=== PATIENT | female | born 2000 ===

== ENCOUNTER 2022-02-07 21:50 | Inpatient (IN) | payer OTHER ==
[~2022-02-07] VITALS: Ht 162.6 cm; Wt 67.3 kg
[2022-02-07 22:22] LABS: BASOPHILS ABSOLUTE AUTO 0.03 K/mm3 (0.00-0.23); BASOPHILS PERCENT AUTO 0 % (0-2); EOSINOPHILS ABSOLUTE AUTO 0.02 K/mm3 (0.00-0.68); EOSINOPHILS PERCENT AUTO 0 % (0-6); Hematocrit 43.3 % (33.0-51.0); Hemoglobin 14.8 g/dL (11.5-16.0); IMMATURE GRAN ABSOLUTE AUTO 0.02 K/mm3 (0.00-0.10); IMMATURE GRAN PERCENT AUTO 0 % (0-1); LYMPHOCYTES ABSOLUTE AUTO 2.05 K/mm3 (0.84-5.20); LYMPHOCYTES PERCENT AUTO 27 % (21-46); MONOCYTES ABSOLUTE AUTO 0.36 K/mm3 (0.16-1.47); MONOCYTES PERCENT AUTO 5 % (4-13); Mean Corpuscular HGB 29.8 pg (26.0-34.0); Mean Corpuscular HGB Conc 34.2 g/dL (31.5-36.5); Mean Corpuscular Volume 87 fL (80-100); Mean Platelet Volume 8.9 fL (9.1-12.4); NEUTROPHILS ABSOLUTE AUTO 5.08 K/mm3 (1.96-9.15); NEUTROPHILS PERCENT AUTO 67 % (41-73); Platelet Count 306 K/mm3 (150-400); RDW Coefficient Variation 12.4 % (11.7-14.2); RDW Standard Deviation 39.4 fL (35.1-46.3); Red Blood Cell Count 4.96 M/mm3 (3.80-5.20); White Blood Cell Count 7.56 K/mm3 (4.00-11.30)
[2022-02-07 22:36] LABS: Source, Urine Foley catheter
[2022-02-07 22:42] LABS: Bilirubin, Urine Neg (Neg); Blood, Urine 1+ (Neg); Glucose Qualitative, Urine Neg (Neg); Ketones, Urine Neg (Neg); Leukocyte Esterase, Urine Neg (Neg); Nitrite, Urine Neg (Neg); Protein, Urine Neg (Neg); Specific Gravity, Urine 1.015 (1.003-1.022); Urobilinogen, Urine NORM (Normal)
[2022-02-07 22:43] LABS: PCO2 Arterial 36.3 mmHg (35-45); PO2 Arterial 158 mmHg (80-100); pH Blood Arterial 7.43 (7.35-7.45)
[2022-02-07 22:47] LABS: Ethanol (Alcohol), Blood, Med 139 mg/dL; Free Thyroxine 1.03 ng/dL (0.70-1.60); Salicylate <1.7 mg/dL (2.8-20.0); Thyroid Stimulating Hormone 0.945 uIU/mL (0.360-4.800)
[2022-02-07 22:48] LABS: Appearance, Urine Clear (Clear); Color, Urine Yellow (P-Yellow)
[2022-02-07 22:49] LABS: Bacteria Not Seen /hpf; Red Blood Cells, Urine 0-2 /hpf (0-2); Squamous Epithelial Cells Rare /hpf (Few); White Blood Cells, Urine Not Seen /hpf (0-5)
[2022-02-07 22:56] LABS: Alanine Aminotransfer (ALT/SGP 27 U/L (12-78); Albumin/Globulin Ratio 1.1 (0.8-1.8); Alk Phos 60 U/L (50-136); Anion Gap 12 mmol/L (6-16); Aspartate Aminotrans (AST/SGOT 21 U/L (12-37); Bilirubin, Total 0.2 mg/dL (0.1-1.0); Blood Urea Nitrogen 7 mg/dL (8-24); Bun/Creatinine Ratio 7.3 (12.0-20.0); CO2, Blood 21 mmol/L (21-32); Calcium, Blood 8.8 mg/dL (8.5-10.1); Chloride, Blood 111 mmol/L (98-108); Creatinine, Blood 0.96 mg/dL (0.40-1.00); Globulin, Blood 3.6 g/dL (2.2-4.0); Glomerular Filtration Rate 86 (60-); Glucose, Blood 120 mg/dL (70-99); Sodium, Blood 144 mmol/L (136-145); Total Protein, Blood 7.6 g/dL (6.4-8.2)
[2022-02-07 22:58] LABS: Acetaminophen, Random <2.0 ug/mL (10.0-30.0)
[2022-02-07 23:23] LABS: U Amphetamine Screen Not Detected; U Barbituate Screen Not Detected; U Benzodiazapine Screen Not Detected; U Buprenorphine Screen Not Detected; U Cannabinoids Screen Not Detected; U Cocaine Screen DETECTED; U Methadone Screen Not Detected; U Methamphetamine Screen Not Detected; U Opiates Screen Not Detected; U Oxycodone Screen Not Detected; U Phencyclidine Screen Not Detected; U Propoxyphene Screen Not Detected
[2022-02-07 23:44] LABS: Influenza A, PCR NEGATIVE (NEGATIVE); Influenza B, PCR NEGATIVE (NEGATIVE); Resp Syncytial Virus, PCR NEGATIVE (NEGATIVE); SARS-Cov-2 (COVID-19) PCR, MMC NEGATIVE (NEGATIVE)
--- NOTE | 2022-02-08 00:30 | NUR ---
ASSUMED CARE. PATIENT ARRIVED TO ROOM VIA FIORDALIZA RT AT BEDSIDE HOOKED UP TO VENT AND PLACED VENT SETTINGS AT 16/400/2/30%. PATIENT SEDATED ON 5MCQ OF PROPOFOL. MAG GTT COMPLETED. POTASSIUM GTT INFUSING. IVF BOLUS GOING. ETT TUBE PLACEMENT AT 7.5/23. SLIGHT RESONSE TOP PRESSURE ON EYES. PUPILS VERY SLUGGISH PINPOINT. NO GAG, SWALLOW, OR COUGH NOTED. OG HOOKED TO LIS AT WHICH BRIGHT PINK WAS OBTAINED WHICH APPEARS TO BE BENADRYL THAT SHE INGESTED. BT ARE HYPOACTIVE. NO SKIN CONDITIONS. CATH IS PATENT AND DRAINING. AFEBRILE. HYPOTENSIVE IN THE 80'S WILL CALL DR. BENITES. WILL CONTINUE TO MONITOR.
[2022-02-08] MEDS ORDERED: GABA300 PO (02:59)
[2022-02-08] MEDS ORDERED: Prozac40 MG PO (03:00)
[2022-02-08] MEDS ORDERED: QUET25 PO (03:01)
--- NOTE | 2022-02-08 03:44 | NUR ---
SPOKE TO DR. BENITES IN REGARDS TO LOW BP MAP 65 AT THIS TIME. ORDER TO BOLUS AND IF STILL LOW START LEVOPHED.
--- NOTE | 2022-02-08 06:08 | NUR ---
SHIFT SUMMARY: PATIENT HAS REMAINED SEDATED ON PROPOFOL WITH RATE INCREASED TO 10MCQ THIS AM, SHE IS ABLE TO OPEN EYES BUT DOES NOT FOLLOW DIRECTIONS. PUPILS ARE STILL SLUGGISH, NO GAG, COUGH OR SWALLOW NOTED. SHE HAS RECEIVED 2G MAG, POTASSIUM CHLORIDE, AND 750MG OF KEPPRA. SHE DID HAVE 1 SEIZURE THAT LASTED SECONDS. LS CLEAR, VENT SETTINGS 16/400/2/30%. SATS REMAINED 100%. SINUS ON MONITOR WITH RATE IN THE 80-90'S. BP HAS IMPROVED NOW IN THE 112/81. QTC HAVE REMAINED BELOW 550. ABD SOFT, SLIGHT DISTENTION, OG TO LIS WITH PINK DRAINAGE OF 275CC WHICH APPEARS TO BE THE BENADRYL SHE HAD INGESTED. THIS AM EKG SHOWED PROLONG QT AND T WAVE ABNORMALITY. VERGARA WITH CLEAR YELLOW, GOOD OUTPUT. TOTAL OF 2 LITER BOLUS WAS GIVEN. RESTRAINTS ARE IN PLACE. CONSULT TO [facility] COMPLETED. WILL REPORT OFF TO DAYSHIFT.
[2022-02-08 06:10] LABS: Bun/Creatinine Ratio 6.9 (12.0-20.0); Calcium, Blood 7.8 mg/dL (8.5-10.1); Creatinine, Blood 1.01 mg/dL (0.40-1.00); Potassium, Blood 4.2 mmol/L (3.5-5.5)
[2022-02-08 06:12] LABS: BASOPHILS ABSOLUTE AUTO 0.08 K/mm3 (0.00-0.23); BASOPHILS PERCENT AUTO 1 % (0-2); EOSINOPHILS ABSOLUTE AUTO 0.06 K/mm3 (0.00-0.68); EOSINOPHILS PERCENT AUTO 0 % (0-6); Hemoglobin 14.3 g/dL (11.5-16.0); IMMATURE GRAN ABSOLUTE AUTO 0.24 K/mm3 (0.00-0.10); IMMATURE GRAN PERCENT AUTO 2 % (0-1); LYMPHOCYTES ABSOLUTE AUTO 2.35 K/mm3 (0.84-5.20); LYMPHOCYTES PERCENT AUTO 16 % (21-46); MONOCYTES ABSOLUTE AUTO 1.14 K/mm3 (0.16-1.47); MONOCYTES PERCENT AUTO 8 % (4-13); Mean Corpuscular HGB 29.2 pg (26.0-34.0); Mean Corpuscular HGB Conc 33.3 g/dL (31.5-36.5); Mean Corpuscular Volume 88 fL (80-100); Mean Platelet Volume 8.9 fL (9.1-12.4); NEUTROPHILS ABSOLUTE AUTO 10.69 K/mm3 (1.96-9.15); NEUTROPHILS PERCENT AUTO 74 % (41-73); Platelet Count 252 K/mm3 (150-400); RDW Coefficient Variation 12.7 % (11.7-14.2); RDW Standard Deviation 40.5 fL (35.1-46.3); Red Blood Cell Count 4.89 M/mm3 (3.80-5.20); White Blood Cell Count 14.56 K/mm3 (4.00-11.30)
--- NOTE | 2022-02-08 07:30 | NUR ---
PT REMAINS UNRESPONSIVE. PUPILS 4 MM AND SLUGGISH. MINIMAL COUGH AND GAG REFLEX WITH ORAL CARE AND ETT SUCTIONING. SEIZURE PADS IN PLACE-NO NOTED SEIZURE ACTIVITY THIS AM. PROPOFOL @ 10 MCG/KG/MIN. ECG SHOWS SR WITH RATE 90'S-MONITORING QT/QTC. SBP TRENDING 110'S. DP/PT PULSES STRONG. NO NOTED EDEMA. LUNGS CLEAR. 7.5 ETT/ 23 @ TEETH. VENT:AC/VC 16, TV 400, PEEP 2, FIO2 30%. SATS>90%. OGT WITH LARGE AMOUNT OF PINK, LIQUID DRAINAGE. VERGARA TO BSD WITH ADEQUATE URINE OUTPUT. PT HAS MULTIPLE TATTOOS AND PIERCINGS, BUT SKIN IS OVERALL CDI. WILL CONTACT HOSPITALIST TO DISCUSS WHETHER OR NOT ELECTRIC VEHICLE ELECTRICIAN CONSULT NEEDED. ONCE PT IS EXTUBATED, SHE WILL REQUIRE 1:1 SITTER SHE IS HIGH RISK FOR SUICIDE.
--- NOTE | 2022-02-08 08:05 | NUR ---
DR. DUCKWORTH HERE TO SEE PT. FULL UPDATE GIVEN. GLOBAL MOBILITY SPECIALIST HAS BEEN CONSULTED.
[2022-02-08 08:36] LABS: Source, Urine Foley catheter
[2022-02-08 08:39] LABS: Appearance, Urine Clear (Clear); Bilirubin, Urine Neg (Neg); Blood, Urine Neg (Neg); Color, Urine Yellow (P-Yellow); Glucose Qualitative, Urine Neg (Neg); Ketones, Urine Neg (Neg); Leukocyte Esterase, Urine Neg (Neg); Nitrite, Urine Neg (Neg); Protein, Urine 2+ (Neg); Specific Gravity, Urine 1.015 (1.003-1.022); Urobilinogen, Urine NORM (Normal)
[2022-02-08 08:59] LABS: Bacteria Rare /hpf; Red Blood Cells, Urine 0-2 /hpf (0-2); Squamous Epithelial Cells Not Seen /hpf (Few)
--- NOTE | 2022-02-08 09:45 | NUR ---
DR. SCOTT IN TO SEE PT. UPDATE GIVEN. PT DID OPEN HER EYES TO VOICE, BUT UNABLE TO TRACK OR FOLLOW COMMANDS. NYSTAGMUS NOTED.
--- NOTE | 2022-02-08 10:01 | NUR ---
MYOCLONIC MOVEMENT NOTED. EYES OPEN AND CONTINUOUS NYSTAGMUS NOTED. DR. SCOTT AWARE. PROPOFOL TITRATED UP TO 20 MCG/KG/MIN.
--- NOTE | 2022-02-08 12:00 | NUR ---
NO FURTHER MYOCLONIC MOVEMENT NOTED WITH PROPOFOL @ 20 MCG/KG/MIN. TEMP 99.3-BLANKETS REMOVED. HR CONTINUES 90'S SR. SBP TRENDING 110-120'S. LUNGS REMAIN CLEAR. MAINTAINS SATS>90% ON FIO2 30% OGT CONTINUES TO DRAIN PINK LIQUID DRAINAGE TO LIS. VERGARA OUTPUT ADEQUATE.
--- NOTE | 2022-02-08 15:59 | NUR ---
MYCLONIC MOVEMENT NOTED. CONTINUOUS NYSTAGMUS WITH PROPOFOL @ 20 MCG/IKG/MIN. MED WITH ATIVAN 2 MG IVP X 1 AND TITRATED PROPOFOL UP TO 30 MCG/KG/MIN. TEMP 100.1. HR STILL 90'S SR. BP TRENDING 120-130'S/90'S.
--- NOTE | 2022-02-08 17:57 | NUR ---
NO NOTED SEIZURE ACTIVITY OR MYCLONIC MOVEMENT @ PRESENT. HR 68-SR. PROPOFOL TITRATED DOWN TO 30 MCG/KG/MIN. TEMP 99.7. SATS >90% ON RA. OGT CONTINUES TO DRAIN PINK, LIQUID DRAINAGE. VERGARA OUTPUT 1000 CC THIS SHIFT.
--- NOTE | 2022-02-08 19:00 | NUR ---
ASSUMED CARE ASSUMED CARE OF PATIENT. REMAINS INTUBATED- AC/VC+ 16/400/5/30%. RR 16. SEDATED WITH PROPOFOL AT 35MCG/KG/MIN. WITHDRAWS EXTREMITIES TO NOXIOUS STIMULI. NO GAG OR COUGH. NO NYSTAGMUS NOTED AT THIS TIME. NO SEIZURE ACTIVITY. MONITOR SHOWS NSR, RATE 60s. MONITORING QT/QTc. BP STABLE. OG TO LIS WITH PINK DRAINAGE- FLUSHED FOR PATENCY. VERGARA PATENT AND DRAINING TO GRAVITY. 1/2NS INFUSING AT 100CC/HR PER ORDER. SEE SHIFT ASSESSMENT FOR FULL ASSESSMENT.
--- NOTE | 2022-02-09 02:22 | NUR ---
SEIZURE ACTIVITY PT NOTED TO HAVE MYOCLONIC JERKING WITH EYELID TWITCHING AND NYSTAGMUS. MEDICATED WITH ATIVAN 2MG IV.
[2022-02-09 03:41] LABS: BASOPHILS ABSOLUTE AUTO 0.05 K/mm3 (0.00-0.23); BASOPHILS PERCENT AUTO 0 % (0-2); EOSINOPHILS PERCENT AUTO 1 % (0-6); Hematocrit 39.8 % (33.0-51.0); Hemoglobin 13.1 g/dL (11.5-16.0); IMMATURE GRAN ABSOLUTE AUTO 0.04 K/mm3 (0.00-0.10); IMMATURE GRAN PERCENT AUTO 0 % (0-1); LYMPHOCYTES PERCENT AUTO 18 % (21-46); MONOCYTES ABSOLUTE AUTO 1.02 K/mm3 (0.16-1.47); MONOCYTES PERCENT AUTO 8 % (4-13); Mean Corpuscular HGB 29.4 pg (26.0-34.0); Mean Corpuscular HGB Conc 32.9 g/dL (31.5-36.5); Mean Corpuscular Volume 89 fL (80-100); Mean Platelet Volume 8.9 fL (9.1-12.4); NEUTROPHILS ABSOLUTE AUTO 9.38 K/mm3 (1.96-9.15); NEUTROPHILS PERCENT AUTO 73 % (41-73); Platelet Count 257 K/mm3 (150-400); RDW Coefficient Variation 13.1 % (11.7-14.2); RDW Standard Deviation 42.7 fL (35.1-46.3); Red Blood Cell Count 4.45 M/mm3 (3.80-5.20); White Blood Cell Count 12.89 K/mm3 (4.00-11.30)
[2022-02-09 04:01] LABS: Albumin, Blood 3.5 g/dL (3.4-5.0); Anion Gap 7 mmol/L (6-16); Blood Urea Nitrogen 7 mg/dL (8-24); Bun/Creatinine Ratio 6.7 (12.0-20.0); CO2, Blood 24 mmol/L (21-32); Calcium, Blood 8.7 mg/dL (8.5-10.1); Chloride, Blood 110 mmol/L (98-108); Creatinine, Blood 1.04 mg/dL (0.40-1.00); Glomerular Filtration Rate 78 (60-); Glucose, Blood 67 mg/dL (70-99); Magnesium, Blood 2.1 mg/dL (1.6-2.4); Phosphorus, Blood 3.2 mg/dL (2.5-4.9); Potassium, Blood 3.2 mmol/L (3.5-5.5); Sodium, Blood 141 mmol/L (136-145)
--- NOTE | 2022-02-09 06:37 | NUR ---
SHIFT SUMMARY NO ACUTE CHANGES. REMAINS INTUBATED- VENT SETTINGS UNCHANGED. SEDATED WITH PROPOFOL AT 35MCG/KG/MIN. PT WITHDRAWS FROM NOXIOUS STIMULI. OCCASIONAL GRIMACES NOTED. REACHES TOWARDS ETT TUBE WITH RIGHT HAND WHEN RESTRAINTS ARE OFF. SEIZURE ACTIVITY NOTED X 1 DURING SHIFT- RESOLVED WITH ATIVAN 2MG IV. OG TO LIS WITH SCANT PINK DRAINAGE. OGT FLUSHED PRN FOR PATENCY. VERGARA PATENT AND DRAINING TO GRAVITY. 1/2 NS INFUSING AT 100CC/HR PER ORDER. NO CONTACT WITH FAMILY DURING NOC. MONITOR SHOWS NSR, RATE 60s. BP STABLE. KCL 40mEq IV STARTED THIS AM WITH GOAL TO MAINTAIN K+ >4. WILL REPORT TO ONCOMING RN WHEN AVAILABLE.
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
--- NOTE | 2022-02-09 09:32 | NUR ---
DR. SCOTT HERE DOING ROUNDS. BRIEF UPDATE GIVEN. POISON CONTROL UPDATED WELL.
--- NOTE | 2022-02-09 12:30 | NUR ---
NO FURTHER MYCLONIC MOVEMENT SINCE ATIVAN GIVEN. PROPOFOL DRIP CONTINUES @ 35 MCG/KG/MIN. CT OF HEAD COMPLETED. PT REMAINS FEBRILE. BCX2 DONE AND ROCEPHIN STARTED. OGTF VITAL HIGH PROTEIN INITIATED @ 25 ML/HR WITH FLUSH 30CC H20 EVERY 4 HOURS. VERGARA OUTPUT ADEQUATE.
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
--- NOTE | 2022-02-09 17:39 | NUR ---
PT OPENS EYES TO VERBAL STIMULI. GRIMACES AND BEGINS COUGHING. ETT SUCTION PRODUCTIVE OF MODERATE AMOUNT OF THICK, YELLOW SPUTUM. MYOCLONIC/SPASTIC MOVEMENT NOTED TO EXTREMITIES. PT UNABLE TO FOLLOW COMMANDS AT THIS TIME. PT GUARDIAN YUNG HAS LEFT FOR THE EVENING. SHE WILL RETURN @ 0800 02/10/22.
--- NOTE | 2022-02-09 20:00 | NUR ---
ASSUMED CARE. OPENS EYES TO NAME, FOLLOWS DIRECTIONS EVIDENCE BY BUNCHER OPERATOR AND MOVING EXTREMITITES WHEN ASKED, PUPILS DILATED SLUGGISH. COUGH, SWALLOW NOTED. LS CLEAR, THICK CARBONE SECRETIONS ORALLY, SCANT AMOUNT. AC/VC VENT SETTINGS 16/400/5/30% SATS 100%. PROPOFOL AT 35MCQ. IVF AT 100ML/HR. ABD SLIGHTLY DISTENDED, BT HYPOACTIVE, TF INFUSING AT 25ML/HR, NO RESIDUALS. FEBRILE 101. VERGARA PATENT AND DRAINING. NO SKIN BREAKDOWN. RESTRAINTS IN PLACE, HAD TO TIGHTEN SHE TRIED TO GRAB THE ETT TUBE. REST OF VITALS STABLE. WILL CONTINUE TO MONITOR.
--- NOTE | 2022-02-09 21:40 | NUR ---
PT BECOMING INCREASING AWAKE, COUGHING MORE, SWALLOWING CONTINUOUSLY, AND FIGHTING AGAINST THE RESTRAINTS TRYING TO GRAB THE ETT TUBE, WILL SETTLE DOWN FOR A SECOND WHEN ENCOURAGED BUT THEN STARTED RIGHT BACK UP SOON I WALKED OUT OF THE ROOM. HAD TO INCREASE HER PROPOFOL TO 45 THAN TO 50 TO GET HER TO SETTLE DOWN.
[2022-02-10 04:12] LABS: BASOPHILS ABSOLUTE AUTO 0.05 K/mm3 (0.00-0.23); BASOPHILS PERCENT AUTO 0 % (0-2); EOSINOPHILS PERCENT AUTO 1 % (0-6); Hematocrit 37.6 % (33.0-51.0); Hemoglobin 12.5 g/dL (11.5-16.0); IMMATURE GRAN ABSOLUTE AUTO 0.08 K/mm3 (0.00-0.10); IMMATURE GRAN PERCENT AUTO 1 % (0-1); LYMPHOCYTES ABSOLUTE AUTO 2.25 K/mm3 (0.84-5.20); LYMPHOCYTES PERCENT AUTO 16 % (21-46); MONOCYTES ABSOLUTE AUTO 1.02 K/mm3 (0.16-1.47); MONOCYTES PERCENT AUTO 7 % (4-13); Mean Corpuscular HGB 29.1 pg (26.0-34.0); Mean Corpuscular HGB Conc 33.2 g/dL (31.5-36.5); Mean Corpuscular Volume 88 fL (80-100); Mean Platelet Volume 9.2 fL (9.1-12.4); NEUTROPHILS ABSOLUTE AUTO 10.25 K/mm3 (1.96-9.15); NEUTROPHILS PERCENT AUTO 74 % (41-73); Platelet Count 253 K/mm3 (150-400); RDW Coefficient Variation 12.6 % (11.7-14.2); RDW Standard Deviation 40.1 fL (35.1-46.3); Red Blood Cell Count 4.29 M/mm3 (3.80-5.20); White Blood Cell Count 13.85 K/mm3 (4.00-11.30)
[2022-02-10 04:40] LABS: Anion Gap 7 mmol/L (6-16); Blood Urea Nitrogen 7 mg/dL (8-24); Bun/Creatinine Ratio 8.3 (12.0-20.0); CO2, Blood 24 mmol/L (21-32); Calcium, Blood 8.1 mg/dL (8.5-10.1); Chloride, Blood 110 mmol/L (98-108); Creatinine, Blood 0.84 mg/dL (0.40-1.00); Glomerular Filtration Rate 101 (60-); Glucose, Blood 92 mg/dL (70-99); Magnesium, Blood 1.8 mg/dL (1.6-2.4); Phosphorus, Blood 3.8 mg/dL (2.5-4.9); Potassium, Blood 3.4 mmol/L (3.5-5.5); Sodium, Blood 141 mmol/L (136-145)
--- NOTE | 2022-02-10 05:56 | NUR ---
SHIFT SUMMARY: PT HAS BECAME INCREASING MORE AWARE AND ALERT T/O SHIFT. FIGHTING AGAINST VENT, ATTEMPTING TO GRAB ETT TUBE, PULLING AGAINST RESTRAINTS. PROPOFOL HAS BEEN INCREASED TO 50MCQ. IVF AT 100ML/HR. SHE HAS FOLLOWED DIRECTIONS AT TIMES WHEN ASKED BUT IS NOT ALWAYS ORIENTED. LS HAVE REMAINED CLEAR W/ SATS 100% ON AC/VC VENT SETTINGS OF 16/400/5/30%. THICK CARBONE SECRETIONS ORALLY, SCANT FROM ETT TUBE. SPASTIC MOVEMENTS OFF AND ON TO EXTREMITITES. FEBRILE WITH TMAX 101.8. TYLENOL GIVEN X1. ECG CONTINUES SR WIHT RATE IN THE 70'S. TF VHP @ 25CC/HR, NO RESIDUALS, NO BM. VERGARA OUTPUT ADEQUATE. LABS REVIEWED WITH SLIGHT INCREASE TO WBC. NO OTHER SIGNIFICANT ABNORMALITIES. WILL REPORT TO DAYSHIFT.
--- NOTE | 2022-02-10 09:07 | NUR ---
AM NOTE... ASSUMED CARE OF PT AT 0700 THE PT IS INTUBATED AND SEDATED BUT WAKES EASILY TO VERBAL STIMULI. THE PT'S PROPOFOL IS RUNNING AT 50MCG AT THIS TIME. THE PT IS INTUBATED WITH A 7.5 THAT IS 24 AT THE TEETH. L/S CLEAR T/O DIM IN THE BASES. VENT SETTINGS ARE AC/VC:16/400/5/30% WITH O2 SATS >90%. OG TUBE IS PATENT WITH TUBE FEEDS RUNNING PER ORDERS. BT PRESENT AND HYPOACTIVE, ABD IS SOFT TO PALPATION. THE PT IS IN SR IN THE 80'S BP IS STABLE. NO EDEMA IS NOTED ON ASSESSMENT. THE PT'S VERGARA IS PATENT AND DRAINING TO GRAVITY. THE PT IS FEBRILE WITH A TEMP OF 100.4. AT 0720 THIS RN ASSESSED THE PT AND TURNED OFF THE PROPOFOL, THE PROPOFOLW OFF APROX 15 MINS WHEN SHE THREW UP WITH OUT ANY COUGHING/GAGGING NOTED. THE PT'S TUBE FEEDS WERE STOPPED AND SHE WAS GIVEN ZOFRAN. APROX 30 MINS LATER THE PT THREW UP AGAIN. THIS RN CALLED DR. SCOTT AND OBTAINED ORDERS TO CHANGE THE OG TUBE TO LIS AND GIVEN PHENERGREN. WILL CONTINUE TO MONITOR.
--- NOTE | 2022-02-10 10:49 | NUR ---
PT UPDATE.... THE PT WAS EXTUBATED TO RA AT 0941 WITH O2 SATS >90%. THE PT'S VOICE IS SOFT BUT SHE IS ABLE TO SPEAK. THE PT'S ARMS ARE WEAK BUT SHE IS ABLE TO MOVE ALL EXTREMITIES WELL. THE PT IS ANXIOUS AT TIMES AND TEARFUL. THE PT ASKED THIS RN IF SHE WAS OR NOT, THIS RN TOLD THE PT THAT HER TEST WAS NEGATIVE, THE PT WAS VERY RELIEVED, SO RELIEVED SHE CRIED. THIS RN ASKED THE PT IF SHE WAS HAVING THOUGHTS OR FEELINGS OF HARMING HERSELF OR OTHERS AND THE PT STATED SHE DID NOT. WILL CONTINUE TO MONITOR
--- NOTE | 2022-02-10 12:53 | NUR ---
PT UPDATE... THE PT HAS BEEN AWAKE AND ALERT SINCE EXTUBATION, THE PT'S VS HAVE BEEN STABLE BUT HER HR GOES UP TO THE 120'S-130'S WHEN SHE BECOMES ANXIOUS AND/OR UPSET AND TEARFUL. THE PT IS ABLE TO HAVE AN APPROPRIATE CONVERSATION BUT THEN SHE WILL SWTICH AND BECOME ANXIOUS AND PARANOID, SHE ALSO HAS BEEN HAVING VISUAL HALLUCINATIONS SUCH SEEING A CAT RUN THOUGH THE ROOM OR STATING THE OFFICE SPECIALIST LENORA IS HER HIGHSCHOOL TEACHER, THE PT HAS ALSO STATED THAT SHE WAS SEEING "KIDS RUNNING AROUND." WILL CONTINUE TO MONITOR
[2022-02-10 13:45] LABS: Bun/Creatinine Ratio 6.1 (12.0-20.0); Calcium, Blood 8.7 mg/dL (8.5-10.1); Creatinine, Blood 0.82 mg/dL (0.40-1.00); Potassium, Blood 3.3 mmol/L (3.5-5.5)
--- NOTE | 2022-02-10 14:24 | NUR ---
PT UPDATE.... THE PT CONTINUES TO HAVE HALLUCINATIONS, BE CONFUSED AND PARANOID, SHE IS EASILY RE-ORIENTED BUT THIS ONLY LASTS A SHORT TIME. DURING CONVERSATION THE PT STATED TO YUNG BERRY "THE NEXT TIME I DO THIS IT WILL WORK AND I'LL BE ." THE PT ALSO STATED TO THE BARREL CAP SETTER "NEXT TIME I DO THIS IT WILL WORK BECAUSE I WON'T CALL 911." WILL CONTINUE TO MONITOR.
--- NOTE | 2022-02-10 17:03 | NUR ---
SHIFT SUMMARY.... THE PT'S VERGARA WAS D/C'd WNL. THE PT WAS ABLE TO GET UP FROM THE BED TO THE RECLINER CHAIR WITH 1 P MIN ASSIST. THE PT'S VS CONTINUE TO BE STABLE. THE PT'S CONFUSION IS SLOWLY STARTING TO CLEAR BUT SHE STILL HAS EPISODES OF PARANOIA AND HALLUCINATIONS. THE PT WAS ABLE TO SIT UP IN THE CHAIR AND FEED HERSELF DINNER. CALL LIGHT IN REACH WILL CONTINUE TO MONITOR UNTIL REPORT IS GIVEN TO ONCOMING RN.
--- NOTE | 2022-02-10 18:32 | NUR ---
PT UPDATE.... THE PT GOT VERY UPSET WHEN SHE THOUGHT SHE WAS HEARING THE VOICED OF HER AUNT AND OTHER FAMILY MEMBERS OUTSIDE OF HER ROOM, THE PT WAS ALSO HEARING MUSIC AND HAVING OTHER AUDITORY HALLUCINATIONS. WHEN THE PT THOUGHT SHE HEARD HER FAMILY SHE TRIED TO GET UP OUT OF HER CHAIR TO LEAVE, SHE STARTED TO PULL HER CARDIAC LEADS OFF AND TOLD THE LPN INSTRUCTOR "I'M LEAVING AND I DON'T CARE WHAT YOU DO OR IF THE EXCAVATING CONTRACTOR ARREST ME I AM GOING TO MY FAMILY." THE LPN INSTRUCTOR WAS ABLE TO SPEAK WITH HER AND CALM HER DOWN AT THIS TIME BUT THE PT REFUSED TO PUT THE CARDIAC LEADS BACK ON AT THIS TIME. WILL CONTINUE TO MONITOR.
--- NOTE | 2022-02-10 20:29 | NUR ---
ASSESSMENT/ASSUMED CARE PT SITTING UP IN CHAIR LOOKING OUTSIDE. SPEECH QUIET BUT APPROP. C/O SORE THROAT. DENIES SI AT THIS TIME. WHEN ASKED ABOUT HEARING OR SEEING THINGS PT STATES,"NO RIGHT NOW". PT LOOKING AROUND ROOM WITH A CONFUSED LOOK. WHEN ASKED ABOUT CONFUSION PT STATES,"JUST TRYING TO REMEMBER AND FOCUS ON THINGS. I'M HAVING HARD TIME WITH FOCUSING". LUNGS CLEAR ON ROOMAIR. RESP EVEN AND NONLABORED. DENIES SOB. SLIGHT COUGH NOTED DUE TO SORE THROAT. HEART RATE REGULAR IN THE 90'S. BP STABLE. NO EDEMA. MAEW. SKIN WARM AND DRY. BT+ DENIES N/V AT THIS TIME. PT EATING YOGURT AND CRACKERS. IV POWER GLIDE TO LEFT UPPER ARM 20G, ABLE TO FLUSH AND DRAW BLOOD WITHOUT DIFFICULTY. IV POWER GLIDE TO RIGHT UPPER ARM 18G, ABLE TO FLUSH AND DRAW BLOOD WITHOUT DIFFICULTY. PT UP TO BATHROOM WITH ONE STANDBY ASSIST. GAIT UNSTEADY. VOIDED YELLOW URINE. UP TO SINK TO WASH HANDS AND HS CARE THAN TO BED. SITTER KATIE AT DOOR IN DIRECT LINE OF SITE OF PT.
[2022-02-11 03:50] LABS: BASOPHILS ABSOLUTE AUTO 0.04 K/mm3 (0.00-0.23); BASOPHILS PERCENT AUTO 0 % (0-2); EOSINOPHILS ABSOLUTE AUTO 0.31 K/mm3 (0.00-0.68); EOSINOPHILS PERCENT AUTO 3 % (0-6); Hematocrit 38.4 % (33.0-51.0); Hemoglobin 12.6 g/dL (11.5-16.0); IMMATURE GRAN ABSOLUTE AUTO 0.04 K/mm3 (0.00-0.10); IMMATURE GRAN PERCENT AUTO 0 % (0-1); LYMPHOCYTES ABSOLUTE AUTO 2.43 K/mm3 (0.84-5.20); LYMPHOCYTES PERCENT AUTO 23 % (21-46); MONOCYTES ABSOLUTE AUTO 0.62 K/mm3 (0.16-1.47); MONOCYTES PERCENT AUTO 6 % (4-13); Mean Corpuscular HGB 29.3 pg (26.0-34.0); Mean Corpuscular HGB Conc 32.8 g/dL (31.5-36.5); Mean Corpuscular Volume 89 fL (80-100); NEUTROPHILS ABSOLUTE AUTO 7.08 K/mm3 (1.96-9.15); NEUTROPHILS PERCENT AUTO 67 % (41-73); Platelet Count 254 K/mm3 (150-400); RDW Coefficient Variation 12.5 % (11.7-14.2); RDW Standard Deviation 40.6 fL (35.1-46.3); White Blood Cell Count 10.52 K/mm3 (4.00-11.30)
[2022-02-11 04:07] LABS: Anion Gap 6 mmol/L (6-16); Blood Urea Nitrogen 7 mg/dL (8-24); CO2, Blood 26 mmol/L (21-32); Calcium, Blood 8.4 mg/dL (8.5-10.1); Chloride, Blood 112 mmol/L (98-108); Creatinine, Blood 0.78 mg/dL (0.40-1.00); Glomerular Filtration Rate 110 (60-); Glucose, Blood 99 mg/dL (70-99); Magnesium, Blood 1.9 mg/dL (1.6-2.4); Phosphorus, Blood 4.3 mg/dL (2.5-4.9); Potassium, Blood 3.6 mmol/L (3.5-5.5); Sodium, Blood 144 mmol/L (136-145)
--- NOTE | 2022-02-11 05:21 | NUR ---
SHIFT SUMMARY PT SLEEPING. RECEIVED MELATONIN AND TYLENOL FOR SLEEP AND THROAT PAIN. PT UP TO THE BATHROOM WITH ONE ASSIST, GAIT UNSTEADY. PT FOLLOWING INSTRUCTIONS AND ANSWERING QUESTIONS. DENIES SI DURING THE NIGHT. VSS. POWER GLIDE TO RIGHT AND LEFT UPPER ARM, SALINE LOCKED. SITTER AT DOOR ALL NIGHT. PT TURNING AND MOVING SELF AROUND IN BED. REPORT TO ON COMING NURSE
--- NOTE | 2022-02-11 10:18 | NUR ---
ASSUMED CARE REPORT FROM ANGEL CRAWFORD AT 0700. PT RESTING IN BED. WAKES c VERBAL STIMULI. A&O X 3. UNSURE OF DATE. COOPERATIVE c CARE. DENIES SI/HI. STATES THAT SHE HAS SOMEWHERE SAFE TO GO HOME, c MOTHER YUNG. INDEPENDENT IN ROOM. 1:1 SITTER AT BEDSIDE. AWAITING [facility] CONSULT. LUNGS CLEAR. MED NO TELE. VSS. GOOD APPETITE. WILL CONTINUE TO MONITOR.
--- NOTE | 2022-02-11 17:20 | NUR ---
SHIFT SUMMARY NO ACUTE CHANGES THIS SHIFT. PT REMAINS ON 2 MD HOLD. 1:1 SITTER, HIGH RISK SI. ASSESSED BY DR JULIEN, PLAN FOR INPT TREATMENT. PT AGREEABLE. DENIES SI/HI. COOPERATIVE c CARE. DENIES HALLUCINATIONS. PT ABLE TO AMB TO SHOWER s DIFFICULTIES. REFUSED PHONE CALLS AND VISITORS THIS SHIFT. WILL CONTINUE TO MONITOR UNTIL REPORT TO ONCOMING NURSE.
--- NOTE | 2022-02-11 19:30 | NUR ---
ASSUMPTION OF CARE PT IS ALERT AND ORIENTED X4. SHE IS CALM, CONVERSATION IS APPROPRIATE. NO ACUTE DISTRESS NOTED. VS WNL. PT REMAINS A 2 MD HOLD AT THIS TIME. PT VERBALIZES UNDERSTANDING OF THIS. SHE IS REFUSING TO SPEAK TO OR SEE ANY FAMILY/FRIENDS PRESENTLY. SITTER 1:1
--- NOTE | 2022-02-12 05:31 | NUR ---
SHIFT SUMMERY PT HAS HAD AN UNEVENTFUL SHIFT. VS HAVE BEEN WNL. PT HAS BEEN COMPLIANT W/TREATMENTS. 1:1 SITTER AT BEDSIDE. REMAINS 2 MD OLD.
--- NOTE | 2022-02-12 08:00 | NUR ---
PT CONTINUES WITH 1:1 SITTER SHE IS HIGH RISK FOR SUICIDE AND S/P SUICIDE ATTEMPT. PT IS A&O X 4. SHE DENIES PAIN OR SOB. VS STABLE. AFEBRILE. LUNGS CLEAR. SATS>90% ON RA. PT REPORTS POOR APPETITE THIS AM. BREAKFAST TRAY PROVIDED. PT CURRENTLY IS DENYING SI. HOWEVER, SHE APPEARS WITHDRAWN AND IS AVOIDING EYE CONTACT. PT HAS REFUSED AM CARE AND SHOWER AT THIS TIME. WILL OFFER AGAIN LATER TODAY. PT AWARE THAT DR. NAPIER IS TO SEE HER TODAY. SHE STATES THAT SHE IS WILLING TO PARTICIPATE. CALL LIGHT WITHIN REACH. PT AGREES TO CALL FOR ASSISTANCE PRN.
--- NOTE | 2022-02-12 08:17 | NUR ---
DR. GUILLERMO IN TO SEE PT. PT ATE 95% OR HER BREAKFAST.
--- NOTE | 2022-02-12 09:45 | NUR ---
DR. MOSES HERE TO SEE PT. DISUSSED RENAN WITH PT AND 2 OF HER DAUGHTERS.
--- NOTE | 2022-02-12 11:58 | NUR ---
PT GIVEN MEAL TRAY. SHE DENIES COMPLAINTS AT THIS TIME. PT REMAINS WITHDRAWN, BUT IS VERY COOPERATIVE WITH CARE.
--- NOTE | 2022-02-12 11:59 | NUR ---
PT NOW "MODERATE RISK" PER HOSPITALIST-SEE ORDER.
--- NOTE | 2022-02-12 12:00 | NUR ---
PT WATCHING TV WITHOUT NOTED DISTRESS. PT ATE 85% OF LUNCH TRAY AND DENIES COMPLAINTS AT THIS TIME.
--- NOTE | 2022-02-12 15:47 | NUR ---
PT SITTING UP IN BED WATCHING TV WITHOUT NOTED DISTRESS. PT DENIES SI AT THIS TIME, BUT SHE REMAINS QUITE WITHDRAWN. PT REPOSITIONING HERSELF IN THE BED AND UP IN THE ROOM WITHOUT DIFFICULTY.
--- NOTE | 2022-02-12 19:20 | NUR ---
ASSUMPTION OF CARE PT SITTING UP IN BED. SHE IS ALERT AND ORIENTED CURRENTLY. SHE REPORTS SOME CONFUSION REGARDING HOW SHE GOT TO THE HOSPITAL. SHE DOES REMEMBER TAKING MULTIPLE MEDICATIONS PRIOR TO VISIT. PT UPDATED ON EVENTS SINCE ADMISSION. SHE IS INDEPENENT IN ROOM. DENIES PAIN OR DISCOMFORT. LUNG SOUNDS CLEAR T/O. ABDOMEN SOFT, BOWEL TONES ACTIVE. REPORTS NO URINARY ISSUES. 1:1 SITTER AT DOORWAY DUE TO SI PRECAUTIONS.
--- NOTE | 2022-02-12 22:15 | NUR ---
TRANFER TO MEDICAL FLOOR REPORT GIVEN TO BITA CRAWFORD. PT TRANSPORTED BY JEET MONSON AND [facility] VIA WHEELCHAIR. NO BELONGINGS IN ROOM. TRANSFERRED TO ROOM 353 AT THIS TIME.
--- NOTE | 2022-02-13 05:10 | NUR ---
PT TRANSFERED FROM ICU. PT IS A/0X4 VERY PLEASANT AND INDEPENDENT IN ROOM. 1:1 SITTER AT BEDSIDE T/O SHIFT. PT WITH NO NEW COMPLAINS OVERNIGHT.
--- NOTE | 2022-02-13 17:26 | NUR ---
SHIFT SUMMARY: NO ACUTE EVENTS. DENIED SI/HI, CHANGED TO LOW SI PER DR. NAPIER. TWO MD HOLD EXPIRES ON THURSDAY. HAS 1:[address] UNTIL THE END OF THIS SHIFT. DENIED PAIN. HAD VISIT FROM HER BIOLOGICAL MOTHER TWICE TODAY. THIS AUTHOR GAVE TELEPHONE UPDATE TO HER GUARDIAN YUNG Palomino 2.
--- NOTE | 2022-02-14 05:45 | NUR ---
SHIFT SUMMARY: PT IS ALERT AND ORIENTED. PT IS CALM AND COOPERATIVE WITH CARE. PT CALLS APPROPRIATELY. PT IS INDEPENDENT IN THE ROOM. PT DENIES SUICIDAL IDEATION. POWERGLIDES REMOVED ORDERED. PT DENIES PAIN, NAUSEA, VOMITING, AND SOB. PT SLEPT THROUGHOUT THE NIGHT WITHOUT COMPLICATIONS. NO ACUTE CHANGES. WILL CONTINUE TO MONITOR.
--- NOTE | 2022-02-14 18:05 | NUR ---
SHIFT SUMMARY: NO ACUTE EVENTS. DENIES SI/HI. NEW CLOTHING BROUGHT BY PT'S MOTHER YESTERDAY WAS CHECKED BY THIS AUTHOR AND GIVEN TO PT. SHE TOOK A SHOWER AND CHANGED CLOTHES. NO VISITORS TODAY. SLEPT MOST OF THE MORNING. AWAITING INPT PSYCH FACILITY AVAILABILITY.
--- NOTE | 2022-02-15 06:38 | NUR ---
PATIENT RESTED QUIETLY OVERNIGHT. ROOM SECURED PER SI SAFETY PROTOCOLS. PATIENT VOICED SHE HAD NO EXISTING PLAN OR THOUGHTS OF HARMING HERSELF AT THIS TIME NO COMPLAINTS OF PAIN OR DISCOMFORT.
--- NOTE | 2022-02-15 19:12 | NUR ---
SHIFT SUMMARY A&O X 4. VSS. PT RESTED COMFORTABLY THROUGHOUT SHIFT. DENIED SI/HI. HAD 1 VISITOR TODAY THIS AFTERNOON. PLAN IS FOR IN-PT PSYCH [facility].
--- NOTE | 2022-02-16 04:31 | NUR ---
TIMOTHY WAS ALERT, APPROPRIATE WITH HER CARE, AND DENIED ANY CURRENT THOUGHTS OF SELF HARM OVERNIGHT. SHE EXPRESSED FEELING A SADNESS ABOUT NOT UNDERSTANDING WHY SHE HAS HAD MULTIPLE EPISODES OF SI IN HER LIFE. NO COMPLAINTS OF PAIN OR ANY DISCOMFORT. EATING AND DRINKING WELL. SHE APPEARED TO SLEEP WELL OVERNIGHT. CONSTANT VIDEO MONITORING WELL FREQUENT IN PERSON CHECKS BY THIS RN
--- NOTE | 2022-02-16 18:41 | NUR ---
SHIFT SUMMARY A&O X 4. VSS. SHE DID ADMIT TO HAVING THOUGHTS OF SI TODAY THOUGH NO PLANS TO CARRY OUT. SHE STATES SHE IS HOPING GETTING HELP WILL GIVE HER HOPE & STATES SHE IS DISCOURAGED THAT SHE DOESN'T KNOW WHY OR UNDERSTAND WHY SHE HAS TRIED IN THE PAST OR CONTINUES TO STRUGGLE. SHE DID STATE THAT SHE KNOWS SHE CAN'T TRUST HERSELF TO NOT CARRY OUT ANY FUTURE ATTEMPTS THEREFORE SHE IS WANTING HELP AND HOPES FOR HOPE. SAW HER TODAY AND SPENT TIME IN THE ROOM TALKING TO HER. [facility] PLAN IS FOR IN-PT PSYCH PLACEMENT ONCE ACCEPTED.
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
--- NOTE | 2022-02-17 17:20 | NUR ---
TRANSPORT SET UP, PT ACCEPTED TO [facility], GOING TO ROOM 144B [phone]
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
--- NOTE | 2022-02-17 18:15 | NUR ---
Patient appears stable this shift, stated that she was looking forward to see her sister today, very happy smiling/laughing with sister. Patient did not voice any thoughts of sucide/self-harm. Placement to [place] was arranged patient was to be transported this evening. Patient later stated that she was only going to [place] to make her parents happy, stated she has been to facilties before and they never helped her. Patient decided that she did not want to go to [place], and wanted to leave AMA. Discussed risk vs benefits of leaving against medical advice. 2-MD hold today at 1700, patient signed AMA form, RN witnessed, left medical unit at 1805. RN called and notified MD.
== END 2022-02-17 18:19 | disposition left against medical advice (07) | DRG 917 ==
LOC: ER 21:50 → ICUW 21:51 → MEDS 21:51 → ICUE 21:51 → MEDS 02-12 22:27
PROVIDERS: Emergency Medicine; Internal Medicine; Internal Medicine Critical Care Medicine; ADMIT Internal Medicine
PROC: 0BH17EZ Insertion of Endotracheal Airway into Trachea, Via Natural or Artificial Opening (ICD-10-PCS; principal; 2022-02-07)
PROC: 5A1945Z Respiratory Ventilation, 24-96 Consecutive Hours (ICD-10-PCS; 2022-02-07)
DX: T39.312A Poisoning by propionic acid derivatives, intentional self-harm, initial encounter (principal); G92.8 Other toxic encephalopathy; J96.90 Respiratory failure, unspecified, unspecified whether with hypoxia or hypercapnia; E87.1 Hypo-osmolality and hyponatremia; Z20.822 Contact with and (suspected) exposure to COVID-19; T42.6X2A Poisoning by other antiepileptic and sedative-hypnotic drugs, intentional self-harm, initial encounter; T43.592A Poisoning by other antipsychotics and neuroleptics, intentional self-harm, initial encounter; F10.129 Alcohol abuse with intoxication, unspecified; E87.6 Hypokalemia; F41.9 Anxiety disorder, unspecified; F22 Delusional disorders; D72.829 Elevated white blood cell count, unspecified; Z78.1 Physical restraint status; F31.9 Bipolar disorder, unspecified; F14.10 Cocaine abuse, uncomplicated; R56.9 Unspecified convulsions; Z79.899 Other long term (current) drug therapy; Z98.890 Other specified postprocedural states; Y90.6 Blood alcohol level of 120-199 mg/100 ml
CPT/HCPCS: 0241U; 31500; 36415; 36600; 51702; 70450; 71045; 80048; 80053; 80069; 81001; 81025; 82803; 83735; 84439; 84443; 85025; 87040; 87070; 87077; 87147; 87186; 87205; 93005; 93010; 94002; 94003; 94760; 96365-59; 96368; 96375-59; 99291-25; A9270; C1751; C9113; G0480; J0330; J0696; J1650; J1953; J2060; J2310; J2405; J2550; J2704; J3411; J3475; J3480; J7030; J7050